=== PATIENT | female | born 1965 | race Two or more races ===

== ENCOUNTER 2017-11-22 08:56 | Emergency (ER) | payer MEDICAID ==
[~2017-11-22] VITALS: Ht 165.1 cm; Wt 112.1 kg
[2017-11-22] MEDS ORDERED: FAMOTIDINE 20 MG TABLET PO ONE (09:30)
[2017-11-22] MEDS ORDERED: MAALOX/HYOSCYAMINE/LIDOCAINE 45 ML BTL PO ONE (09:30)
[2017-11-22 10:05] LABS: BASOPHILS # (AUTO) 0.02 x10^3/uL (0-0.1); BASOPHILS % (AUTO) 0 % (0-1); EOSINOPHILS # (AUTO) 0.09 x10^3/uL (0-0.4); EOSINOPHILS % (AUTO) 2 % (1-7); LYMPHOCYTES # (AUTO) 1.43 x10^3/uL (1-3.4); LYMPHOCYTES % (AUTO) 28 % (22-44); MD NO; MEAN CORPUSCULAR HEMOGLOBIN 29.9 pg (27.0-34.8); MEAN CORPUSCULAR VOLUME 90.5 fL (80-100); MEAN PLATELET VOLUME 8.3 fL (7.4-10.4); MONOCYTES # (AUTO) 0.39 x10^3/uL (0.2-0.8); MONOCYTES % (AUTO) 8 % (2-9); NEUTROPHILS # (AUTO) 3.14 x10^3/uL (1.8-6.8); NEUTROPHILS % (AUTO) 62 % (42-75); PLATELET COUNT 226 x10^3/uL (130-400); RED CELL DISTRIBUTION WIDTH 14.1 % (9.6-15.2)
[2017-11-22 10:17] LABS: ALANINE AMINOTRANSFERASE 25 U/L (12-78); ALBUMIN 3.6 g/dL (3.4-5.0); ANION GAP 5 mmol/L (5-15); CALCIUM 8.4 mg/dL (8.5-10.1); CHLORIDE 108 mmol/L (98-107); CREATININE 0.86 mg/dL (0.55-1.02)
[2017-11-22 10:19] LABS: ALKALINE PHOSPHATASE 89 U/L (45-117); BILIRUBIN,TOTAL 0.5 mg/dL (0.2-1.0); TOTAL PROTEIN 7.4 g/dL (6.4-8.2)
[2017-11-22 10:39] VITALS: BP 131/82
[2017-11-22] MEDS ORDERED: FAMOTIDINE 20 MG TABLET ONE (10:48)
[2017-11-22] MEDS ORDERED: MAALOX/HYOSCYAMINE/LIDOCAINE 45 ML BTL ONE (10:48)
[2017-11-22] MEDS ORDERED: OXYcodone/APAP 10/325MG TABLET ONE (11:29)
[2017-11-22] MEDS ORDERED: OXYcodone/APAP 10/325MG TABLET PO ONE (11:30)
== END 2017-11-22 12:29 | disposition home or self-care (01) ==
LOC: ED 12:23
DX: M25.461 Effusion, right knee (principal); K21.9 Gastro-esophageal reflux disease without esophagitis; M19.90 Unspecified osteoarthritis, unspecified site; F17.200 Nicotine dependence, unspecified, uncomplicated
CPT/HCPCS: 29505; 36415; 76700; 80053; 83690; 85025; 93005; 99285